=== PATIENT | male | born 1985 | race Two or more races ===

== ENCOUNTER 2024-09-14 09:47 | Inpatient (IN) | payer MEDICAID, OTHER ==
[~2024-09-14] VITALS: Ht 170.2 cm; Wt 152.2 kg
--- NOTE | 2024-09-14 10:50 | ED.PDOC ---
Musculoskeletal HPI Comments HPI: Poor Historian. 39-year-old male presents to the emergency department for evaluation of left lower extremity [id number] redness swelling and tenderness to palpation. Patient went to his doctor on Tuesday who prescribed him Bactrim and Flagyl. Patient has been monitoring his redness on his extremity but he says it is getting worse despite being on antibiotics. Denies any other acute symptoms. Past Medical History: Obesity, diabetes, sleep apnea Past Surgical History: Denies any Initial history. Patient denies any drugs or alcohol or tobacco. No known drug allergies REVIEW OF SYSTEMS: CONSTITUTIONAL: Denies acute: fever, diaphoresis, chills, generalized weakness. HEAD: Denies acute: headache, photophobia Eyes: Denies acute: Double vision, vision loss, eye pain, eye discharge. EARS: Denies acute: tinnitus, hearing loss, ear discharge, ear pain, THROAT: Denies acute: sore throat, swelling, difficulty swallowing , pain with swallowing, change in voice. NECK: Denies acute: neck pain, neck swelling, stiff neck. HEART: Denies acute : chest pain, palpitations, LUNGS: Denies acute: SOB, wheezing, cough, hemoptysis ABDOMEN: Denies acute: abdominal pain, Nausea, Vomiting, diarrhea, melena , hematemesis, hematochezia SKIN: Denies acute: itchiness. EXTREMITIES: Denies acute: calf pain, numbness, tingling, weakness, Denies acute: Low back pain. Neuro: Denies acute: focal neurological deficit, motor or sensory focal neurological deficit, tremors, seizure like activity, confusion, dizziness, change in mental status, loss of bowel or bladder function, cauda equina like symptoms. : Denies acute: dysuria, hematuria, flank pain, increase in urinary frequency. PSYCH: Denies acute: hallucination, suicidal ideation, homicidal ideation. PHYSICAL EXAM: General: ---no-----acute distress, awake and alert. Head: normocephalic, atraumatic. Neck: supple, trachea is midline, no swelling. Throat: Normal phonation. Eyes:, no erythema, no purulent discharge, no proptosis, no icterus. Heart: regular rate, regular rhythm, no significant murmur appreciated. Lungs: no apparent respiratory distress, Able to speak in full sentences. No wheezing, no rhonchi, no crackles. No stridors Clear to auscultation bilaterally. Abdomen: non tender to palpation, non distended, soft, no guarding, no rebound, + bowel sounds. Obese Neuro: Awake, Alert, oriented to name, self, situation, follows commands GCS=15. Speech is normal. Skin: no petechia, no purpura, no cyanosis, non-pale, not jaundice. Evaluation of the affected extremity: Left calf tenderness to palpation, noted erythema extending from above the ankle all the way to [id number]. There is a marking that the patient applied few days ago that and it shows that the erythema has extended far beyond that mo. Patient is neurovascularly intact in the affected extremity. Pedal pulses palpable. Makes eye contact. moves all four extremities. Face: no apparent facial droop. Ambulating in the ED independently. ED COURSE: DISCLAIMER: This medical document was created using an electronic medical record system with voice recognition software and computerized dictation system. Although this document has been carefully reviewed, there might still be some phonetic and typographical errors. Occasional wrong-word or "sound-alike" substitutions may have occurred due to the inherent limitations of voice recognition software. These areas are purely typographical due to imperfections of the software programs and do not reflect any compromise in the patient's medical care. Please read the chart carefully and recognize, using context, where these substitutions have occurred. Chief Complaint: Extremity Swelling Time Seen by MD: 10:12 Primary Care Provider: OWILLIAM Reviewed Notes: Allergies Allergies: Coded Allergies: NO KNOWN ALLERGIES (Unverified , 09/14/24) Information Source: Patient Mode of Arrival: Ambulatory Location: Left Was a procedure done? Was a procedure done?: No Differential Diagnosis EXT Differential Diagnosis: Cellulitis, CHF, Deep Vein Thrombosis, Compartment Syndrome, Fracture, Sprain, Dislocation, Laceration, Contusion, Neurovascular injury, Arthritis, Other (Leg swellingDdx include but not limited to DVT, ischemic limb, pitting edema, volume overload, CHF, cellulitis, hematoma, compartment syndrome, dependent edema, venous stasis.) X-Ray, Labs, Meds, VS Vital Signs Date Time Temp Pulse Resp B/P (MAP) Pulse Ox O2 Delivery O2 Flow Rate FiO2 09/14/24 11:29 88 18 95 Room Air* 0 21 09/14/24 11:29 98.2 88 18 123/69 (87) 95 98.2 09/14/24 10:06 98.0 92 18 136/68 (90) 96 98.0 Lab Test 09/14/24 10:56 Range/Units White Blood Count 10.2 4.4-10.8 10^3/uL Red Blood Count 5.09 4.5-5.90 10^6/uL Hemoglobin 16.6 13.5-17.5 g/dL Hematocrit 48.0 41.0-53.0 % Mean Corpuscular Volume 94.2 80.0-100.0 fL Mean Corpuscular Hemoglobin 32.7 H 28.0-32.0 pg Mean Corpuscular Hemoglobin Concent 34.7 32.0-36.0 g/dL Red Cell Distribution Width 13.4 11.8-14.3 % Platelet Count 194 140-450 10^3/uL Mean Platelet Volume 8.5 6.9-10.8 fL Neutrophils (%) (Auto) 67.1 37.0-80.0 % Lymphocytes (%) (Auto) 23.0 10.0-50.0 % Monocytes (%) (Auto) 8.9 0.0-12.0 % Eosinophils (%) (Auto) 0.8 0.0-7.0 % Basophils (%) (Auto) 0.2 0.0-2.0 % Neutrophils # (Auto) 6.8 1.6-8.6 10 ^3/uL Lymphocytes # (Auto) 2.3 0.4-5.4 10 ^3/uL Monocytes # (Auto) 0.9 0-1.3 10 ^3/uL Eosinophils # (Auto) 0.1 0-0.8 10 ^3/uL Basophils # (Auto) 0 0-0.2 10 ^3/uL Nucleated Red Blood Cells 0.1 % Sodium Level 140 136-145 mmol/L Potassium Level 3.5 3.5-5.1 mmol/L Chloride Level 108 H 98-107 mmol/L Carbon Dioxide Level 22 20-31 mmol/L Anion Gap 10 5-15 Blood Urea Nitrogen 14 9-23 mg/dL Creatinine 0.78 0.700-1.30 mg/dL Glomerular Filtration Rate Calc 115 >90 mL/min BUN/Creatinine Ratio 17.9 10.0-20.0 Serum Glucose 53 L 74-106 mg/dL Lactic Acid Level 1.2 0.4-2.0 mmol/L Calcium Level 9.7 8.7-10.4 mg/dL C-Reactive Protein High Sensitivity 8.51 H <1.0 mg/dL B-Type Natriuretic Peptide 22.59 0-100 pg/mL Current Medications Medications (Trade) Dose Ordered Sig/Navid Route Start Time Stop Time Status Last Admin Clindamycin Phosphate 50 ml @ 50 mls/hr ONCE ONCE IV 09/14/24 11:00 09/14/24 11:59 DC 09/14/24 11:37 [place] [id number] Ph: [phone] DIAGNOSTIC IMAGING Diagnostic Imaging Report : [id number] Signed PATIENT: JULIANE CARNEY JACCT: [id number] UNIT: [id number] : 1985 LOC: ER ROOM / BED: / AGE / SEX: 39 / M ADM STATUS: REG ER SERVICE 1019 ORDERING PHYSICIAN: JYOTI SR DO PROCEDURE(s): LLDVT - LT Lower DVT REASON: pain swelling ORDER NUMBER(s): [id number], ACCESSION NUMBER(s): [id number] Clinical History: pain swelling Comparison: None Technique: Duplex Doppler evaluation of the deep venous system of the left lower extremity from the common femoral vein to the popliteal vein including color Doppler and spectral/pulsed waveform analysis was performed. Findings: The common femoral vein demonstrates appropriate compressibility and waveform variability. There is compressibility/patency of the great saphenous vein at the proximal thigh. The femoral vein demonstrates appropriate compressibility and waveform variability. The deep femoral vein demonstrates appropriate compressibility and waveform variability. The popliteal vein demonstrates appropriate compressibility and waveform variability. There is normal compressibility at the tibioperoneal trunk. Impression: No left deep venous thrombosis. There is a prominent lymph node measuring 3.9 x 1.7 cm which is nonspecific. If clinical concern/symptoms persist or worsen, short-interval follow-up study is suggested. ATED BY: MIKAL ALEMAN MD DICTATED DATE/TIME: 09/14/24 105 SIGNED BY: MIKAL ALEMAN MD SIGNED DATE/TIME: 09/14/24 105 CC: Time of 1ST Reevaluation: 13:09 Reevaluation 1ST: Unchanged Patient Education/Counseling: Diagnosis, Treatment Family Education/Counseling: Other Comments MDM: patient presented with the above HPI.-leg erythema swelling and pain-----workup was initiated. patient was found with the above mentioned diagnosis. the following medications were ordered: please refer to order lists of meds and tests obtained by myself Dr. Sr. Patient ED course and VS have been stabilized. Patient has been reassessed in the ED and remained in a stable condition. Pertinent incidental findings were discussed with the patient and/or family. Patient/family voices understanding and is agreeable with plan. Patient has been observed in the ED adequate length of time to insure improvement/stability. Escalation of care considered: Consideration of escalation to observation or admission Patient failed outpatient oral antibiotics. IV antibiotics initiated. Ultrasound was obtained to rule out DVT. Noted lymph node consistent with cellulitis and infectious process of the leg. Less likely to be necrotizing fasciitis based on clinical exam and labs. Patient is neurovascularly intact in the affected extremity. Patient was found with hypoglycemia without any symptoms. He was given juice and rechecked. He was also given D25 amp Patient was ADMITTED to the medicine team for further evaluation and treatment of their presentation. All the reports of any imaging studies that were ordered by myself were reviewed by myself. Sepsis Sepsis Reasesment Focused Exam Orders: Laboratory Tests 09/14/24 10:56: Lactic Acid Level 1.2 Departure 1 Departure Time of Disposition: 10:47 Impression: Primary Impression: Left leg cellulitis Additional Impression: Hypoglycemic event in diabetes Disposition: ADMITTED INPATIENT Admit to: Tele Condition: Guarded Discharged With: Self Critical Care Note Critical Care Time?: Yes (35 min-critical care time only) JYOTI SR DO Sep 14, 2024 10:50
--- NOTE | 2024-09-14 10:54 | DVH ---
Clinical History: pain swelling Comparison: None Technique: Duplex Doppler evaluation of the deep venous system of the left lower extremity from the common femor al vein to the popliteal vein including color Doppler and spectral/pulsed waveform analysis was perfo rmed. Findings: The common femoral vein demonstrates appropriate compressibility and waveform variability. There is compressibility/patency of the great saphenous vein at the proximal thigh. The femoral vein demonstrates appropriate compressibility and waveform variability. The deep femoral vein demonstrates appropriate compressibility and waveform variability. The popliteal vein demonstrates appropriate compressibility and waveform variability. There is normal compressibility at the tibioperoneal trunk. Impression: No left deep venous thrombosis. There is a prominent lymph node measuring 3.9 x 1.7 cm which is nonsp ecific. If clinical concern/symptoms persist or worsen, short-interval follow-up study is suggested.
[2024-09-14 11:21] LABS: Hematocrit 48.0 % (41.0-53.0); Hemoglobin 16.6 g/dL (13.5-17.5); Mean Corpuscular Hemoglobin 32.7 pg (28.0-32.0); Mean Corpuscular Volume 94.2 fL (80.0-100.0); Nucleated Red Blood Cells % 0.1 %
[2024-09-14 11:29] VITALS: PULSE 88; RESP 18; O2SAT 95
[2024-09-14 11:32] LABS: Sodium 140 mmol/L (136-145)
[2024-09-14 11:33] LABS: Anion Gap 10 (5-15); Calcium 9.7 mg/dL (8.7-10.4); Carbon Dioxide 22 mmol/L (20-31)
[2024-09-14] MEDS: CLINDAMYCIN 900MG IV 50 ML IV ONE (11:37)
[2024-09-14 11:38] LABS: BUN/Creatinine Ratio 17.9 (10.0-20.0); Blood Urea Nitrogen 14 mg/dL (9-23)
[2024-09-14 11:40] LABS: Chloride 108 mmol/L (98-107); Glucose 53 mg/dL (74-106); Potassium 3.5 mmol/L (3.5-5.1)
[2024-09-14] MEDS ORDERED: ACETAMINOPHEN 325 MG TAB PO PRN (13:30)
[2024-09-14] MEDS ORDERED: DEXTROSE (50%) 50ML SYRG IV PRN (13:30)
[2024-09-14] MEDS ORDERED: ONDANSETRON HCL 4 MG/2 ML VIAL IV PRN (13:30)
[2024-09-14] MEDS ORDERED: DOCUSATE SOD 100 MG CAP PO PRN (13:30)
--- NOTE | 2024-09-14 13:43 | DVHHP2 ---
History of Present Illness Reason for Visit: Left leg cellulitis History of Present Illness 39-year-old male presented to the ED with complaints of left leg pain and edema, he was started on antibiotics Bactrim and Flagyl 2 days prior and he presented to his primary care provider and was having fevers, shivers, redness and swel ling to left leg he felt it did not help or improve symptoms so he came to the ER. Ultrasound Doppler was negative for DVT. Lactic acid 1.2, WBCs 10.2, patient noted to have hypoglycemia w/out symptoms. Patient will be admitted for IV antibiotics to med/surg floor. Past Medical History Diabetes mellitus type 2, sleep apnea Past Surgical History Denies Family History Denies Smoke: No ALCOHOL: rare Drugs: None Lives: with Family Review of Systems Constitutional: Yes: Malaise; No: Fever, Chills, Sweats, Weakness, Other Eyes: No: Pain, Vision change, Conjunctivae inflammation, Eyelid inflammation, Other, Redness ENT: No: Ear pain, Ear discharge, Nose pain, Nose discharge, Nose congestion, Mouth pain, Mouth swelling, Throat pain, Throat swelling, Other Respiratory: No: Cough, Dry, Shortness of breath, SOB with excertion, Wheezing, Hemoptysis, Pleuritic Pain, Sputum, Wheezing, Other Cardiovascular: No: Chest Pain, Palpitations, Orthopnea, Paroxysmal Noc. Dyspnea, Edema, Lt Headedness, Other Gastrointestinal: No: Nausea, Vomiting, Abdominal Pain, Diarrhea, Constipation, Melena, Hematochezia, Other Genitourinary: No Dysuria, No Frequency, No Incontinence, No Hematuria, No Retention, No Other Musculoskeletal: leg pain (Left leg); No: other, neck pain, shoulder pain, arm pain, back pain, hand pain, foot pain Skin: Other (Redness to left lower leg); No: Rash, Lesions, Jaundice, Bruising Neurological: No: Weakness, Numbness, Incoordination, Change in speech, Confusion, Seizures, Other Allergies: Coded Allergies: NO KNOWN ALLERGIES (Unverified , 09/14/24) Medications Current Medications Medications Dose Ordered Sig/Navid Route Start Time Stop Time Status Last Admin Dose Admin Acetaminophen 325 mg Q4HP PRN PO 09/14/24 13:30 UNV Acetaminophen/ Hydrocodone Bitart 1 tab Q4HP PRN PO 09/14/24 13:30 UNV Ondansetron HCl 4 mg Q4HP PRN IV 09/14/24 13:30 UNV Docusate Sodium 100 mg BIDPRN PRN PO 09/14/24 13:30 UNV Diagnostic Test (Pha) 1 strip ACHS 09/14/24 17:00 UNV Insulin Human Regular ACHS SC 09/14/24 17:00 UNV Dextrose 50 ml UD PRN IV 09/14/24 13:30 UNV Clindamycin Phosphate 50 ml @ 50 mls/hr Q8HR IV 09/14/24 14:00 UNV Exam Vital Signs Vital Signs Date Time Temp Pulse Resp B/P (MAP) Pulse Ox O2 Delivery O2 Flow Rate FiO2 09/14/24 11:29 88 18 95 Room Air* 0 21 09/14/24 11:29 98.2 123/69 (87) 98.2 General Appearance: Alert, Oriented X3, Cooperative, No acute distress HEENT: Atraumatic, PERRLA, EOMI, Mucous membr. moist/pink Respiratory: Clear to auscultation, Normal air movement Cardiovascular: Regular rate, Normal S1, Normal S2, No murmurs Abdominal: Normal bowel sounds, Soft, No tenderness, No hepatospenomegaly, No masses Extremities: No clubbing, No cyanosis, No edema, Normal pulses, No tenderness/swelling Skin: No rashes, No breakdown, No significant lesion Neuro: Normal gait, Normal speech, Strength at 5/5 X4 ext, Normal tone, Sensation intact, Cranial nerves 3-12 NL Psych/Mental Status: Mental status NL, Mood NL Labs/Xrays Reviewed Labs Test 09/14/24 13:05 09/14/24 10:56 Range/Units POC Glucose 56 L 70-106 mg/dl White Blood Count 10.2 4.4-10.8 10^3/uL Red Blood Count 5.09 4.5-5.90 10^6/uL Hemoglobin 16.6 13.5-17.5 g/dL Hematocrit 48.0 41.0-53.0 % Mean Corpuscular Volume 94.2 80.0-100.0 fL Mean Corpuscular Hemoglobin 32.7 H 28.0-32.0 pg Mean Corpuscular Hemoglobin Concent 34.7 32.0-36.0 g/dL Red Cell Distribution Width 13.4 11.8-14.3 % Platelet Count 194 140-450 10^3/uL Mean Platelet Volume 8.5 6.9-10.8 fL Neutrophils (%) (Auto) 67.1 37.0-80.0 % Lymphocytes (%) (Auto) 23.0 10.0-50.0 % Monocytes (%) (Auto) 8.9 0.0-12.0 % Eosinophils (%) (Auto) 0.8 0.0-7.0 % Basophils (%) (Auto) 0.2 0.0-2.0 % Neutrophils # (Auto) 6.8 1.6-8.6 10 ^3/uL Lymphocytes # (Auto) 2.3 0.4-5.4 10 ^3/uL Monocytes # (Auto) 0.9 0-1.3 10 ^3/uL Eosinophils # (Auto) 0.1 0-0.8 10 ^3/uL Basophils # (Auto) 0 0-0.2 10 ^3/uL Nucleated Red Blood Cells 0.1 % Sodium Level 140 136-145 mmol/L Potassium Level 3.5 3.5-5.1 mmol/L Chloride Level 108 H 98-107 mmol/L Carbon Dioxide Level 22 20-31 mmol/L Anion Gap 10 5-15 Blood Urea Nitrogen 14 9-23 mg/dL Creatinine 0.78 0.700-1.30 mg/dL Glomerular Filtration Rate Calc 115 >90 mL/min BUN/Creatinine Ratio 17.9 10.0-20.0 Serum Glucose 53 L 74-106 mg/dL Lactic Acid Level 1.2 0.4-2.0 mmol/L Calcium Level 9.7 8.7-10.4 mg/dL C-Reactive Protein High Sensitivity 8.51 H <1.0 mg/dL B-Type Natriuretic Peptide 22.59 0-100 pg/mL SEPSIS Sepsis Screen Date sepsis recognized/suspect: Sep 14, 2024 Time Sepsis recognized/suspect: 1130 Recent Procedure: No On Antibiotic Therapy: No Respiratory Rate >20: No Heart Rate >90: No Temp<36 C (96.8 F) or >38.3 C: No SBP <90 or MAP <65 mmHG: No New Acute Mental Status Change: No Is the patient on CPAP, BIPAP,: No Physician Orders Beater Worker Helper (09/14/24 ) Blood Culture (09/14/24 10:17) Lt Lower Dvt (09/14/24 10:19) Accucheck (09/14/24 ) Erythrocyte Sedimentation Rate (09/14/24 13:08) Admit (09/14/24 13:23) Allergies (09/14/24 13:23) Code Status (09/14/24 13:23) Acetaminophen Tablet (Tylenol Tablet) (09/14/24 13:30) Hydrocodone-Acet 5/325mg Tab (Stearns 5/32 (09/14/24 13:30) Ondansetron Hcl (Zofran) (09/14/24 13:30) Docusate Sodium Capsule (Colace Capsule) (09/14/24 13:30) Complete Blood Count (09/15/24 04:00) Comprehensive Metabolic Panel (09/15/24 04:00) Condition: Serious (09/14/24 13:23) BRP (09/14/24 13:23) Consistent Carb(Ccho)Diabetes (09/14/24 Lunch) Glucose Blood (Accu-Chek Comfort Curve T (09/14/24 17:00) Insulin R (Human) (Insulin R) (09/14/24 17:00) Dextrose 50% Syringe (09/14/24 13:30) Clindamycin 600mg Iv (Cleocin Iv) (09/14/24 14:00) Vital Signs Date Time Temp Pulse Resp B/P (MAP) Pulse Ox O2 Delivery O2 Flow Rate FiO2 09/14/24 11:29 88 18 95 Room Air* 0 21 09/14/24 11:29 98.2 88 18 123/69 (87) 95 98.2 09/14/24 10:06 98.0 92 18 136/68 (90) 96 98.0 Laboratory Tests Test 09/14/24 10:56 Lactic Acid Level 1.2 mmol/L (0.4-2.0) White Blood Count 10.2 10^3/uL (4.4-10.8) Medications Medications Dose Ordered Sig/Navid Route Start Time Stop Time Status Last Admin Dose Admin Clindamycin Phosphate 50 ml @ 50 mls/hr ONCE ONCE IV 09/14/24 11:00 09/14/24 11:59 DC 09/14/24 11:37 50 MLS/HR Assessment/Plan Assessment/Plan Left Leg cellulitis Admit to med/surg IV Antibiotics- clindamycin Ultrasound Doppler negative for DVT Diabetes mellitus type 2 Accu-Cheks a.c. HS/insulin sliding scale mild Consistent carb diet VTE/GI prophylaxis-no history of GI bleed/ambulatory Plan discussed with: Patient My Orders Orders - CRISTIAN CLEMENT Procedure Category Date Status Time Admit ADMIT 09/14/24 Transmitted 13:23 Allergies NADINE 09/14/24 In Process 13:23 Code Status CODE 09/14/24 Transmitted 13:23 Acetaminophen Tablet PHA 09/14/24 Logged (Tylenol Tablet) 13:30 Hydrocodone-Acet PHA 09/14/24 Logged 5/325mg Tab (Stearns 13:30 Ondansetron Hcl PHA 09/14/24 Logged (Zofran) 13:30 Docusate Sodium PHA 09/14/24 Logged Capsule (Colace 13:30 Complete Blood Count LAB 09/15/24 Verified 04:00 Comprehensive LAB 09/15/24 Verified Metabolic Panel 04:00 Condition: Serious NADINE 09/14/24 In Process 13:23 BRP NADINE 09/14/24 In Process 13:23 Consistent DIET 09/14/24 Transmitted Carb(Ccho)Diabetes Lunch Glucose Blood PHA 09/14/24 Logged (Accu-Chek Comfort 17:00 Insulin R (Human) PHA 09/14/24 Logged (Insulin R) 17:00 Dextrose 50% Syringe PHA 09/14/24 Logged 13:30 Clindamycin 600mg Iv PHA 09/14/24 Logged (Cleocin Iv) 14:00 Date of Service: Sep 14, 2024 Billing Provider: CRISTIAN CLEMENT Common Visit Codes: [id number] INP/OBS CARE (HIGH) CRISTIAN CLEMENT Sep 14, 2024 13:43
[2024-09-14 15:28] VITALS: PULSE 80; RESP 18; O2SAT 97
[2024-09-14 17:00] VITALS: BP 114/72; PULSE 74; RESP 18; TEMP 97.4; O2SAT 96
[2024-09-14] MEDS: InsuLIN REG 1unit/0.01ml Soln (100units/ml) SC SCH (17:00)
[2024-09-14] MEDS: ACCU-CHEK COMFORT CURVE STRIP VI SCH (17:26)
[2024-09-14] MEDS: CLINDAMYCIN 600MG IV 50 ML IV SCH (17:26)
[2024-09-14] MEDS ORDERED: NAP500T PO (17:47)
[2024-09-14] MEDS ORDERED: METF-370 PO (17:47)
[2024-09-14] MEDS ORDERED: ROSU5TAB5 PO (17:47)
[2024-09-14 20:00] VITALS: PULSE 82; RESP 18
[2024-09-14 21:00] VITALS: BP 107/80; PULSE 82; RESP 18; TEMP 98.6; O2SAT 99
[2024-09-14] MEDS: HYDROcodone-ACET 5/325MG TAB PO PRN (21:02)
[2024-09-15] VITALS (8 sets, daily range): BP systolic 101–120; BP diastolic 61–79; PULSE 73–84; RESP 17–20; TEMP 97.6–98.7; O2SAT 95–98
[2024-09-15 06:56] LABS: Hematocrit 44.4 % (41.0-53.0); Hemoglobin 15.1 g/dL (13.5-17.5); Mean Corpuscular Hemoglobin 32.2 pg (28.0-32.0); Mean Corpuscular Volume 94.5 fL (80.0-100.0); Nucleated Red Blood Cells % 0.0 %
[2024-09-15 07:17] LABS: Alanine Aminotransferase 29 U/L (7-40); Albumin 3.9 g/dL (3.2-4.8); Alkaline Phosphatase 76 U/L (46-116); Anion Gap 8 (5-15); BUN/Creatinine Ratio 13.6 (10.0-20.0); Blood Urea Nitrogen 12 mg/dL (9-23); Calcium 9.7 mg/dL (8.7-10.4); Carbon Dioxide 26 mmol/L (20-31); Chloride 105 mmol/L (98-107); Glucose 82 mg/dL (74-106); Potassium 4.0 mmol/L (3.5-5.1); Sodium 139 mmol/L (136-145)
[2024-09-15 07:18] LABS: Bilirubin, Total 0.4 mg/dL (0.2-1.0)
[2024-09-15 07:21] LABS: Total Protein 6.7 g/dL (5.7-8.2)
[2024-09-16] VITALS (8 sets, daily range): BP systolic 110–136; BP diastolic 70–90; PULSE 63–88; RESP 17–22; TEMP 97.3–98.7; O2SAT 94–98
[2024-09-17] VITALS (8 sets, daily range): BP systolic 101–137; BP diastolic 63–73; PULSE 66–84; RESP 18–20; TEMP 97.8–98.6; O2SAT 94–97
--- NOTE | 2024-09-17 15:00 | DVHPN2 ---
Reviewed: Care Plan, H&P, Labs, Medications, Previous Orders, Radiology Changes from previous H/P or p: No Changes General: Per HPI Eyes: No Pain, No Vision change, No Conjunctivae inflammation, No Eyelid inflammation, No Other, No Redness ENT: No Ear pain, No Ear discharge, No Nose pain, No Nose discharge, No Nose congestion, No Mouth pain, No Mouth swelling, No Throat pain, No Throat swelling, No Other Cardiovascular: No Chest Pain, No Palpitations, No Orthopnea, No Paroxysmal Noc. Dyspnea, No Edema, No Lt Headedness, No Other Respiratory: No Cough, No Dry, No Shortness of breath, No SOB with excertion, No Wheezing, No Hemoptysis, No Pleuritic Pain, No Sputum, No Other Gastrointestinal: No Nausea, No Vomiting, No Abdominal Pain, No Diarrhea, No Constipation, No Melena, No Hematochezia, No Other Genitourinary: No Dysuria, No Frequency, No Incontinence, No Hematuria, No Retention, No Other Musculoskeletal: No other, No neck pain, No shoulder pain, No arm pain, No back pain, No hand pain; leg pain (Left leg); No foot pain Skin: No Rash, No Lesions, No Jaundice, No Bruising; Other (Redness to left lower leg) Objective Vitals Vital Signs Date Time Temp Pulse Resp B/P (MAP) Pulse Ox O2 Delivery O2 Flow Rate FiO2 09/17/24 12:24 98.1 66 18 101/64 (76) 96 98.1 09/17/24 08:00 Room Air* 0 21 Intake/Output Intake and Output 09/17/24 07:00 Intake Total 2022 ml Balance 2022 ml Intake Oral 1872 ml IV Total 150 ml # Voids 5 # Bowel Movements 1 General Appearance: Alert, Oriented X3 Lungs: Clear to auscultation Cardiovascular: Regular rate, Normal S1, Normal S2 Neuro: Normal gait, Normal speech Medications Current Medications Medications Dose Ordered Sig/Navid Route Start Time Stop Time Status Last Admin Dose Admin Acetaminophen 325 mg Q4HP PRN PO 09/14/24 13:30 Acetaminophen/ Hydrocodone Bitart 1 tab Q4HP PRN PO 09/14/24 13:30 09/16/24 21:10 1 TAB Ondansetron HCl 4 mg Q4HP PRN IV 09/14/24 13:30 Docusate Sodium 100 mg BIDPRN PRN PO 09/14/24 13:30 Diagnostic Test (Pha) 1 strip ACHS 09/14/24 17:00 09/17/24 11:44 1 STRIP Insulin Human Regular ACHS SC 09/14/24 17:00 Dextrose 50 ml UD PRN IV 09/14/24 13:30 Clindamycin Phosphate 50 ml @ 50 mls/hr Q8HR IV 09/14/24 14:00 09/17/24 13:31 50 MLS/HR Laboratory Results Laboratory Tests 09/15/24 05:14 Microbiology Microbiology Date/Time Source Procedure Growth Status 09/14/24 10:50 Blood Blood Culture - Preliminary NO GROWTH AFTER 72 HOURS OF INCUBATION. Resulted Labs and/or images reviewed: Labs reviewed by me, Image(s) reviewed by me Assessment/Plan Assessment/Plan 39-year-old male presented to the ED with complaints of left leg pain and edema, he was started on antibiotics Bactrim and Flagyl 2 days prior and he presented to his primary care provider and was having fevers, shivers, redness and swelling to left leg he felt it did not help or improve symptoms so he came to the ER. Ultrasound Doppler was negative for DVT. Lactic acid 1.2, WBCs 10.2, patient noted to have hypoglycemia w/out symptoms. Patient will be admitted for IV antibiotics to med/surg floor. Left Leg cellulitis Admit to med/surg IV Antibiotics- clindamycin Ultrasound Doppler negative for DVT Diabetes mellitus type 2 Accu-Cheks a.c. HS/insulin sliding scale mild Consistent carb diet 09/15/2024 left leg is red, hot and edematous. continue with iv abx Plan discussed with: Patient Date of Service: Sep 15, 2024 Billing Provider: ROME BOYLE DO Common Visit Codes: [id number] INP/OBS CARE(HIGH) ROME BOYLE DO Sep 17, 2024 15:00
[2024-09-17] MEDS: PIPERACILLIN-TAZOB 3.375GM 100 ML IV SCH (17:48)
[2024-09-18 00:38] VITALS: BP 125/67; PULSE 73; RESP 16; TEMP 97.8; O2SAT 96
[2024-09-18 05:00] VITALS: BP 98/48; PULSE 75; RESP 16; TEMP 98.4; O2SAT 97
[2024-09-18 08:00] VITALS: PULSE 82; RESP 18; O2SAT 96
[2024-09-18 09:00] VITALS: BP 118/61; PULSE 73; RESP 18; TEMP 97.6; O2SAT 96
[2024-09-18] MEDS: PIPERACILLIN-TAZOB 3.375GM 100 ML IV SCH (09:30)
[2024-09-18 13:00] VITALS: BP 148/90; PULSE 80; RESP 18; TEMP 98.7; O2SAT 95
--- NOTE | 2024-09-18 14:34 | DVHPN2 ---
Reviewed: Care Plan, H&P, Labs, Medications, Previous Orders, Radiology Changes from previous H/P or p: No Changes General: Per HPI Eyes: No Pain, No Vision change, No Conjunctivae inflammation, No Eyelid inflammation, No Other, No Redness ENT: No Ear pain, No Ear discharge, No Nose pain, No Nose discharge, No Nose congestion, No Mouth pain, No Mouth swelling, No Throat pain, No Throat swelling, No Other Cardiovascular: No Chest Pain, No Palpitations, No Orthopnea, No Paroxysmal Noc. Dyspnea, No Edema, No Lt Headedness, No Other Respiratory: No Cough, No Dry, No Shortness of breath, No SOB with excertion, No Wheezing, No Hemoptysis, No Pleuritic Pain, No Sputum, No Other Gastrointestinal: No Nausea, No Vomiting, No Abdominal Pain, No Diarrhea, No Constipation, No Melena, No Hematochezia, No Other Genitourinary: No Dysuria, No Frequency, No Incontinence, No Hematuria, No Retention, No Other Musculoskeletal: No other, No neck pain, No shoulder pain, No arm pain, No back pain, No hand pain; leg pain (Left leg); No foot pain Skin: No Rash, No Lesions, No Jaundice, No Bruising; Other (Redness to left lower leg) Objective Vitals Vital Signs Date Time Temp Pulse Resp B/P (MAP) Pulse Ox O2 Delivery O2 Flow Rate FiO2 09/18/24 13:00 98.7 80 18 148/90 (109) 95 98.7 09/18/24 08:00 Room Air* 0 21 Intake/Output Intake and Output 09/18/24 07:00 Intake Total 1600 ml Balance 1600 ml Intake Oral 1500 ml IV Total 100 ml # Voids 5 # Bowel Movements 1 General Appearance: Alert, Oriented X3 Lungs: Clear to auscultation Cardiovascular: Regular rate, Normal S1, Normal S2 Neuro: Normal gait, Normal speech Medications Current Medications Medications Dose Ordered Sig/Navid Route Start Time Stop Time Status Last Admin Dose Admin Acetaminophen 325 mg Q4HP PRN PO 09/14/24 13:30 Acetaminophen/ Hydrocodone Bitart 1 tab Q4HP PRN PO 09/14/24 13:30 09/16/24 21:10 1 TAB Ondansetron HCl 4 mg Q4HP PRN IV 09/14/24 13:30 Docusate Sodium 100 mg BIDPRN PRN PO 09/14/24 13:30 Diagnostic Test (Pha) 1 strip ACHS 09/14/24 17:00 09/18/24 05:56 1 STRIP Insulin Human Regular ACHS SC 09/14/24 17:00 Dextrose 50 ml UD PRN IV 09/14/24 13:30 Clindamycin Phosphate 50 ml @ 50 mls/hr Q8HR IV 09/14/24 14:00 09/18/24 14:04 50 MLS/HR Piperacillin Sod/ Tazobactam Sod 100 ml @ 25 mls/hr Q6HR@0200,0800,1400,2000 IV 09/18/24 08:00 09/18/24 09:30 25 MLS/HR Laboratory Results Laboratory Tests 09/15/24 05:14 Microbiology Microbiology Date/Time Source Procedure Growth Status 09/14/24 10:50 Blood Blood Culture - Preliminary NO GROWTH AFTER 72 HOURS OF INCUBATION. Resulted Labs and/or images reviewed: Labs reviewed by me, Image(s) reviewed by me Assessment/Plan Assessment/Plan 39-year-old male presented to the ED with complaints of left leg pain and edema, he was started on antibiotics Bactrim and Flagyl 2 days prior and he presented to his primary care provider and was having fevers, shivers, redness and swelling to left leg he felt it did not help or improve symptoms so he came to the ER. Ultrasound Doppler was negative for DVT. Lactic acid 1.2, WBCs 10.2, patient noted to have hypoglycemia w/out symptoms. Patient will be admitted for IV antibiotics to med/surg floor. Left Leg cellulitis Admit to med/surg IV Antibiotics- clindamycin Ultrasound Doppler negative for DVT Diabetes mellitus type 2 Accu-Cheks a.c. HS/insulin sliding scale mild Consistent carb diet 09/15/2024 left leg is red, hot and edematous. continue with iv abx 09/16/2024 still red, slightly improving Plan discussed with: Patient My Orders Orders - ROME BOYLE DO Procedure Category Date Status Time Piperacillin-Tazob PHA 09/18/24 In Process 3.375gm (Zosyn 3.375g 08:00 Date of Service: Sep 16, 2024 Billing Provider: ROME BOYLE DO Common Visit Codes: [id number] INP/OBS CARE(HIGH) BOYLE,ROME T DO Sep 18, 2024 14:34
--- NOTE | 2024-09-18 14:37 | DVHPN2 ---
Reviewed: Care Plan, H&P, Labs, Medications, Previous Orders, Radiology Changes from previous H/P or p: No Changes General: Per HPI Eyes: No Pain, No Vision change, No Conjunctivae inflammation, No Eyelid inflammation, No Other, No Redness ENT: No Ear pain, No Ear discharge, No Nose pain, No Nose discharge, No Nose congestion, No Mouth pain, No Mouth swelling, No Throat pain, No Throat swelling, No Other Cardiovascular: No Chest Pain, No Palpitations, No Orthopnea, No Paroxysmal Noc. Dyspnea, No Edema, No Lt Headedness, No Other Respiratory: No Cough, No Dry, No Shortness of breath, No SOB with excertion, No Wheezing, No Hemoptysis, No Pleuritic Pain, No Sputum, No Other Gastrointestinal: No Nausea, No Vomiting, No Abdominal Pain, No Diarrhea, No Constipation, No Melena, No Hematochezia, No Other Genitourinary: No Dysuria, No Frequency, No Incontinence, No Hematuria, No Retention, No Other Musculoskeletal: No other, No neck pain, No shoulder pain, No arm pain, No back pain, No hand pain; leg pain (Left leg); No foot pain Skin: No Rash, No Lesions, No Jaundice, No Bruising; Other (Redness to left lower leg) Objective Vitals Vital Signs Date Time Temp Pulse Resp B/P (MAP) Pulse Ox O2 Delivery O2 Flow Rate FiO2 09/18/24 13:00 98.7 80 18 148/90 (109) 95 98.7 09/18/24 08:00 Room Air* 0 21 Intake/Output Intake and Output 09/18/24 07:00 Intake Total 1600 ml Balance 1600 ml Intake Oral 1500 ml IV Total 100 ml # Voids 5 # Bowel Movements 1 General Appearance: Alert, Oriented X3 Lungs: Clear to auscultation Cardiovascular: Regular rate, Normal S1, Normal S2 Neuro: Normal gait, Normal speech Medications Current Medications Medications Dose Ordered Sig/Navid Route Start Time Stop Time Status Last Admin Dose Admin Acetaminophen 325 mg Q4HP PRN PO 09/14/24 13:30 Acetaminophen/ Hydrocodone Bitart 1 tab Q4HP PRN PO 09/14/24 13:30 09/16/24 21:10 1 TAB Ondansetron HCl 4 mg Q4HP PRN IV 09/14/24 13:30 Docusate Sodium 100 mg BIDPRN PRN PO 09/14/24 13:30 Diagnostic Test (Pha) 1 strip ACHS 09/14/24 17:00 09/18/24 05:56 1 STRIP Insulin Human Regular ACHS SC 09/14/24 17:00 Dextrose 50 ml UD PRN IV 09/14/24 13:30 Clindamycin Phosphate 50 ml @ 50 mls/hr Q8HR IV 09/14/24 14:00 09/18/24 14:04 50 MLS/HR Piperacillin Sod/ Tazobactam Sod 100 ml @ 25 mls/hr Q6HR@0200,0800,1400,2000 IV 09/18/24 08:00 09/18/24 09:30 25 MLS/HR Laboratory Results Laboratory Tests 09/15/24 05:14 Microbiology Microbiology Date/Time Source Procedure Growth Status 09/14/24 10:50 Blood Blood Culture - Preliminary NO GROWTH AFTER 72 HOURS OF INCUBATION. Resulted Assessment/Plan Assessment/Plan 39-year-old male presented to the ED with complaints of left leg pain and edema, he was started on antibiotics Bactrim and Flagyl 2 days prior and he presented to his primary care provider and was having fevers, shivers, redness and swelling to left leg he felt it did not help or improve symptoms so he came to the ER. Ultrasound Doppler was negative for DVT. Lactic acid 1.2, WBCs 10.2, patient noted to have hypoglycemia w/out symptoms. Patient will be admitted for IV antibiotics to med/surg floor. Left Leg cellulitis Admit to med/surg IV Antibiotics- clindamycin Ultrasound Doppler negative for DVT Diabetes mellitus type 2 Accu-Cheks a.c. HS/insulin sliding scale mild Consistent carb diet 09/15/2024 left leg is red, hot and edematous. continue with iv abx 09/16/2024 still red, slightly improving 09/17/2024 improving, adding zosyn. possible d/c in 24 hours Plan discussed with: Patient My Orders Orders - ROME BOYLE DO Procedure Category Date Status Time Piperacillin-Tazob PHA 09/18/24 In Process 3.375gm (Zosyn 3.375g 08:00 Date of Service: Sep 17, 2024 Billing Provider: ROME BOYLE DO Common Visit Codes: [id number] INP/OBS CARE(HIGH) ROME BOYLE DO Sep 18, 2024 14:37
[2024-09-18] MEDS ORDERED: LEVO500T91 PO (14:38)
[2024-09-18] MEDS ORDERED: CLIN150C18 PO (14:38)
--- NOTE | 2024-09-18 14:43 | DVHDS2 ---
Discharge Summary Date of Admission Sep 14, 2024 at 13:41 Date of Discharge: Sep 18, 2024 Labs/Diagnostic Data: Laboratory Results Test 09/18/24 11:13 09/15/24 05:14 09/14/24 10:56 POC Glucose 119 mg/dl (70-106) White Blood Count 8.3 10^3/uL (4.4-10.8) Red Blood Count 4.70 10^6/uL (4.5-5.90) Hemoglobin 15.1 g/dL (13.5-17.5) Hematocrit 44.4 % (41.0-53.0) Mean Corpuscular Volume 94.5 fL (80.0-100.0) Mean Corpuscular Hemoglobin 32.2 pg (28.0-32.0) Mean Corpuscular Hemoglobin Concent 34.1 g/dL (32.0-36.0) Red Cell Distribution Width 13.5 % (11.8-14.3) Platelet Count 195 10^3/uL (140-450) Mean Platelet Volume 8.5 fL (6.9-10.8) Neutrophils (%) (Auto) 53.5 % (37.0-80.0) Lymphocytes (%) (Auto) 29.3 % (10.0-50.0) Monocytes (%) (Auto) 14.9 % (0.0-12.0) Eosinophils (%) (Auto) 2.1 % (0.0-7.0) Basophils (%) (Auto) 0.2 % (0.0-2.0) Neutrophils # (Auto) 4.4 10 ^3/uL (1.6-8.6) Lymphocytes # (Auto) 2.4 10 ^3/uL (0.4-5.4) Monocytes # (Auto) 1.2 10 ^3/uL (0-1.3) Eosinophils # (Auto) 0.2 10 ^3/uL (0-0.8) Basophils # (Auto) 0 10 ^3/uL (0-0.2) Nucleated Red Blood Cells 0.0 % Sodium Level 139 mmol/L (136-145) Potassium Level 4.0 mmol/L (3.5-5.1) Chloride Level 105 mmol/L (98-107) Carbon Dioxide Level 26 mmol/L (20-31) Anion Gap 8 (5-15) Blood Urea Nitrogen 12 mg/dL (9-23) Creatinine 0.88 mg/dL (0.700-1.30) Glomerular Filtration Rate Calc 111 mL/min (>90) BUN/Creatinine Ratio 13.6 (10.0-20.0) Serum Glucose 82 mg/dL (74-106) Calcium Level 9.7 mg/dL (8.7-10.4) Total Bilirubin 0.4 mg/dL (0.2-1.0) Aspartate Amino Transferase (AST) 35 U/L (13-40) Alanine Aminotransferase (ALT) 29 U/L (7-40) Alkaline Phosphatase 76 U/L (46-116) Total Protein 6.7 g/dL (5.7-8.2) Albumin 3.9 g/dL (3.2-4.8) Erythrocyte Sedimentation Rate 40 mm/hr (0-20) Lactic Acid Level 1.2 mmol/L (0.4-2.0) C-Reactive Protein High Sensitivity 8.51 mg/dL (<1.0) B-Type Natriuretic Peptide 22.59 pg/mL (0-100) Other Laboratory Tests 09/15/24 05:14 Brief Hx & Hospital Course: 39-year-old male presented to the ED with complaints of left leg pain and edema, he was started on antibiotics Bactrim and Flagyl 2 days prior and he presented to his primary care provider and was having fevers, shivers, redness and swelling to left leg he felt it did not help or improve symptoms so he came to the ER. Ultrasound Doppler was negative for DVT. Lactic acid 1.2, WBCs 10.2, patient noted to have hypoglycemia w/out symptoms. Patient will be admitted for IV antibiotics to med/surg floor. Left Leg cellulitis Admit to med/surg IV Antibiotics- clindamycin Ultrasound Doppler negative for DVT Diabetes mellitus type 2 Accu-Cheks a.c. HS/insulin sliding scale mild Consistent carb diet 09/15/2024 left leg is red, hot and edematous. continue with iv abx 09/16/2024 still red, slightly improving 09/17/2024 improving, adding zosyn. possible d/c in 24 hours 09/18/24 discharged to home with oral abx for 10 days Condition at Discharge: Fair Final Diagnosis/Problems List see above Discharge Disposition: Home Discharge Instruct/Medications Diet: Cardiac 2g Na,low cholest Activity: No Restrictions, As Tolerated Scheduled Clindamycin Hcl (Clindamycin Hcl), 150 MG PO BID Levofloxacin Hemihydrate (Levofloxacin), 1 TAB PO DAILY Metformin Hydrochloride (Metformin Hcl), 500 MG PO IBID, (Reported) Naproxen (Naprosyn Tablet), 1 TAB PO BID, (Reported) Rosuvastatin Calcium (Crestor), 1 TAB PO DAILY, (Reported) Discharge Statement: "Patient was advised to return to the ER or call 911 if any headaches, dizziness, shortness of breath, chest pain, abdominal pain, bleeding, fevers, or worsening of medical condition. Patient was counseled about treatment plan, medications, possible side effects, patientverbalized understanding. All questions were answered to the best of my ability. This discharge took greater then 30 minutes in planning, reviewing documentation, counseling the patient, and discussing with other team members." ASSESSMENT ASSESSMENT Assessment Date of Service: Sep 18, 2024 Billing Provider: ROME BOYLE DO Common Visit Codes: [id number] DISCH DAY >30min ROME BOYLE DO Sep 18, 2024 14:43
[2024-09-18 15:56] VITALS: BP 148/90; PULSE 80; RESP 18; TEMP 37.1; O2SAT 95
== END 2024-09-18 16:41 | disposition home or self-care (01) | DRG 383 ==
LOC: ER 09:47 → OVERFLOW 13:41 → EAST 15:49
PROVIDERS: ADMIT Internal Medicine; ATTEND Internal Medicine
DX: L03.116 Cellulitis of left lower limb (principal); E11.649 Type 2 diabetes mellitus with hypoglycemia without coma; E66.9 Obesity, unspecified; G47.30 Sleep apnea, unspecified; Z68.43 Body mass index [BMI] 50.0-59.9, adult
CPT/HCPCS: 36415; 80048; 80053; 82962; 83605; 83880; 85025; 85652; 86141; 87040; 93971; 96365; 99291; G0378; J2543; J3490